=== PATIENT | male | born 2000 | race Caucasian/White ===

== ENCOUNTER 2021-03-29 09:10 | Day surgery (SDC) | payer MEDICAID, OTHER ==
--- NOTE | 2021-03-29 09:19 | NUR ---
PATIENT WALKED BACK FROM TRIAGE WITH CHIEF C/O RIGHT LOWER ABD PAIN X1 DAY. PATIENT REPORTS PAIN HAS GOTTEN PROGRESSIVELY WORSE. PATIENT REPORTS NAUSEA, DENIES VOMITING OR DIARRHEA. NADN, CONNECTED TO MONITOR, VSS, CALL LIGHT WITHIN REACH.
--- NOTE | 2021-03-29 10:29 | NUR ---
PATIENT SITTING IN GURNEY, CONNECTED TO MONITOR, VSS, REPORTS RLQ PAIN, ERMD NOTIFIED, CALL LIGHT WITHIN REACH. WAITING FOR ORDERS.
[2021-03-29] MEDS ORDERED: ONDANSETRON 2MG/ML, 2ML IVPush ONE (10:30)
[2021-03-29] MEDS ORDERED: MORPHINE SULFATE 4 MG/ML, 1ML IVPush PRN (10:30)
--- NOTE | 2021-03-29 10:33 | NUR ---
PATIENT AMBULATED TO BATHROOM WITH STEADY GAIT FOR URINE SAMPLE.
[2021-03-29] MEDS ORDERED: MORPHINE SULFATE 4 MG/ML, 1ML ONE (10:35)
[2021-03-29] MEDS ORDERED: ONDANSETRON 2MG/ML, 2ML ONE ×2 (10:35→12:06)
--- NOTE | 2021-03-29 10:40 | NUR ---
PATIENT MEDICATED PER eMAR, CONNECTED TO MONITOR, VSS, URINE COLLECTED AND SENT TO LAB, CALL LIGHT WITHIN REACH.
--- NOTE | 2021-03-29 10:43 | NUR ---
SURGEON, DR. LEE AT BEDSIDE FOR EVALUATION.
[2021-03-29 10:56] LABS: MICROSCOPIC NOT IND
--- NOTE | 2021-03-29 10:56 | NUR ---
COVID SWAB COLLECTED AND WALKED TO LAB.
[2021-03-29 11:08] LABS: BASOPHILS % (AUTO) 1 % (0-1); EOSINOPHILS % (AUTO) 1 % (1-7); LYMPHOCYTES % (AUTO) 8 % (22-44); MEAN CORPUSCULAR HEMOGLOBIN 29.4 pg (27.5-34.5); MEAN CORPUSCULAR HGB CONC 34.3 g/dL (33.2-36.2); MEAN PLATELET VOLUME 8.5 fL (7.4-10.4); MONOCYTES % (AUTO) 9 % (2-9); NEUTROPHILS % (AUTO) 82 % (42-75); PLATELET COUNT 267 x10^3/uL (130-400); RED BLOOD COUNT 5.48 x10^6/uL (4.38-5.82); RED CELL DISTRIBUTION WIDTH 13.1 % (9.4-14.8)
[2021-03-29 11:13] LABS: ALANINE AMINOTRANSFERASE 30 U/L (12-78); ALBUMIN 4.3 g/dL (3.4-5.0); CALCIUM 9.1 mg/dL (8.5-10.1); CREATININE 0.95 mg/dL (0.7-1.3)
[2021-03-29 11:16] LABS: ALKALINE PHOSPHATASE 86 U/L (45-117); BILIRUBIN,TOTAL 0.7 mg/dL (0.2-1.0); TOTAL PROTEIN 8.1 g/dL (6.4-8.2)
[2021-03-29] MEDS ORDERED: MIDAZOLAM 1 MG/ML, 2ML ONE (11:22)
[2021-03-29] MEDS ORDERED: FENTANYL PF 100 MCG/2ML ONE ×2 (11:22→12:52)
--- NOTE | 2021-03-29 11:23 | NUR ---
REPORT GIVEN TO CARMEN CARBALLO IN OR FOR TRANSFER OF PATIENT CARE.
[2021-03-29] MEDS ORDERED: EPINEPHRINE 1 MG/ML, 1ML ONE (11:26)
[2021-03-29] MEDS ORDERED: BUPIVACAINE/PF 0.5% ONE (11:26)
[2021-03-29 11:27] LABS: ANION GAP 5 mmol/L (5-15); CHLORIDE 106 mmol/L (98-107)
[2021-03-29 11:34] VITALS: BP 121/63
--- NOTE | 2021-03-29 11:35 | NUR ---
PATIENT TRANSFERRED IN STABLE CONDITION VIA GURNEY TO OR WITH LIGHT TRUCK DRIVER, ALL PATIENT BELONGINGS TAKEN WITH PATIENT.
[2021-03-29] MEDS ORDERED: ACETAMINOPHEN 325 MG TABLET PO PRN (12:00)
[2021-03-29] MEDS ORDERED: LORazepam 2 MG/ML, 1ML IVPush PRN (12:00)
[2021-03-29] MEDS ORDERED: METHOCARBAMOL 1,000 MG in DEXTROSE 5% 100 ML IV PRN (12:00)
[2021-03-29] MEDS ORDERED: MEPERIDINE/PF 25MG/0.5ML IVPush PRN (12:00)
[2021-03-29] MEDS ORDERED: HYDROmorphone 1 MG/ML, 1ML INJ IVPush PRN (12:00)
[2021-03-29] MEDS ORDERED: ONDANSETRON 2MG/ML, 2ML IVPush PRN (12:00)
[2021-03-29] MEDS ORDERED: PROMETHAZINE 25 MG/ML, 1ML IVPush PRN (12:00)
[2021-03-29] MEDS ORDERED: PROMETHAZINE 25 MG SUPP PR PRN (12:00)
[2021-03-29] MEDS ORDERED: ALBUTEROL SULFATE 2.5 MG/3 ML NPPB PRN (12:00)
[2021-03-29] MEDS ORDERED: SUCCINYLCHOLINE 20 MG/ML, 10ML ONE (12:06)
[2021-03-29] MEDS ORDERED: NEOSTIGMINE 1 MG/ML, 10ML ONE (12:06)
[2021-03-29] MEDS ORDERED: CEFAZOLIN 1,000 MG ONE (12:06)
[2021-03-29] MEDS ORDERED: DEXAMETHASONE 4 MG/ML, 5ML ONE (12:06)
[2021-03-29] MEDS ORDERED: ROCURONIUM 10MG/ML,5ML ONE (12:06)
[2021-03-29] MEDS ORDERED: PROPOFOL 10 MG/ML, 20ML ONE (12:06)
[2021-03-29] MEDS ORDERED: GLYCOPYRROLATE 0.2MG/1ML, 5ML ONE (12:06)
[2021-03-29] MEDS ORDERED: MEPERIDINE/PF 50 MG/ML ONE (12:07)
[2021-03-29] MEDS ORDERED: BUPIVACAINE/PF-EPI 0.5% 1:200K IM ONE (12:19)
[2021-03-29] MEDS ORDERED: PLEASE ENTER WEIGHT MC SCH (12:30)
[2021-03-29] MEDS ORDERED: CIPR500T4 PO (12:40)
[2021-03-29] MEDS ORDERED: HYDR-2214 PO (12:40)
[2021-03-29] MEDS ORDERED: OXYcodone 5 MG/5 ML ORAL.SOL UDC ONE (12:53)
[2021-03-29] MEDS ORDERED: ACETAMINOPHEN 650 MG/20.3 ML UDC ONE (12:53)
[2021-03-29] MEDS: FENTANYL PF 100 MCG/2ML IV PRN ×2 (12:55→13:05)
[2021-03-29] MEDS: OXYcodone 5 MG/5 ML ORAL.SOL UDC PO PRN ×2 (13:17→13:32)
[2021-03-29] MEDS ORDERED: MEPERIDINE/PF 25MG/ML,1ML ONE (13:30)
[2021-03-30] MEDS ORDERED: ACETAMINOPHEN 325 MG TABLET ONE (09:45)
== END 2021-03-29 12:54 | disposition home or self-care (01) ==
LOC: ED 11:00 → OUT 11:00 → EDIP 11:01 → UNDOADMOB 11:01 → ED 11:05 → EDSTATUS 11:06 → UNDOADMOB 11:14 → INTOOBSV 11:14 → EDIP 11:14 → ED 12:54 → OUT 12:54
PROVIDERS: ATTEND Emergency Medicine
DX: K35.80 Unspecified acute appendicitis (principal); Z20.822 Contact with and (suspected) exposure to COVID-19
CPT/HCPCS: 36415; 44970; 80053; 81003; 85025; 87635; 88304; 96372; 96374; 96375; 99285; J0171; J0330; J0690; J1100; J2175; J2250; J2270; J2405; J2704; J2710; J3010